=== PATIENT | female | born 1950 | race Caucasian/White ===

== ENCOUNTER 2023-06-28 07:05 | Day surgery (SDC) | payer MEDICARE, OTHER ==
[~2023-06-28 07:05] MED LIST: Ak-Dilate OPHTHALMIC*** 1.065 ML, Cyclogyl 1% OPHTH SOL 1.065 ML, GATIFLOXACIN 0.5% OPH... OP ONE; BETADINE 5% OPHTHALMIC 30 ML OP ONE; Lactated Ringers 1,000 ML IV SCH; NON-FORMULARY ITEM OP ONE; TETRACAINE 0.5% STERI-UNIT SOL OP ONE; cefUROXime sodium 0.005 GM in Sodium Chloride Flush 30 ML*** 0.5 ML IJ ONE
[2023-06-28] MEDS ORDERED: Lactated Ringers 1,000 ML IV ONE (08:19)
[2023-06-28] MEDS ORDERED: ACETAZOLAMIDE 250 MG TABLET PO ONE (09:00)
[2023-06-28] MEDS ORDERED: Zofran 4 MG/2 ML VIAL IV PRN (09:00)
[2023-06-28 09:10] VITALS: RESP 18
[2023-06-28] MEDS ORDERED: DIPRIVAN 200 MG/20 ML IV ONE (10:24)
[2023-06-28] MEDS ORDERED: Versed 2 MG/2 ML Injection ONE (10:24)
[2023-06-28 10:57] VITALS: TEMP 97
[2023-06-28 11:04] VITALS: BP 166/77; PULSE 64; O2SAT 95
[2023-06-28] MEDS ORDERED: Epinephrine Preservative Free 1 MG/ML ONE (14:56)
== END 2023-06-28 11:19 | disposition home or self-care (01) ==
LOC: SDC 07:05
PROVIDERS: ATTEND Ophthalmology
DX: H25.812 Combined forms of age-related cataract, left eye (principal)
CPT/HCPCS: 99100; C1780; J0171; J2250; J2704; A9270-GY

== ENCOUNTER 2023-11-01 09:32 | Day surgery (SDC) | payer MEDICARE, OTHER ==
[2023-11-01] MEDS ORDERED: Lactated Ringers 1,000 ML IV ONE (09:50)
[2023-11-01] MEDS ORDERED: Zofran 4 MG/2 ML VIAL IV PRN (11:30)
[2023-11-01] MEDS ORDERED: Epinephrine Preservative Free 1 MG/ML IJ ONE (11:30)
[2023-11-01] MEDS ORDERED: DIPRIVAN 200 MG/20 ML IV ONE (11:45)
[2023-11-01 12:21] VITALS: PULSE 75
[2023-11-01 12:26] VITALS: BP 148/73; RESP 16; TEMP 97.6; O2SAT 93
== END 2023-11-01 12:15 | disposition home or self-care (01) ==
LOC: SDC 09:32
PROVIDERS: ATTEND Ophthalmology
DX: H25.811 Combined forms of age-related cataract, right eye (principal)
CPT/HCPCS: 99100; C1780; J0171; J2704; A9270-GY